=== PATIENT | female | born 1960 | race Caucasian/White ===

== ENCOUNTER 2019-01-10 07:20 | Day surgery (SDC) | payer BC ==
[~2019-01-10] VITALS: Ht 165.1 cm; Wt 136.5 kg
--- NOTE | ~2019-01-10 | OR ---
[facility] [address] [place], [place] [address] Draft DATE OF OPERATION: 01/10/2019 SURGEON: Svetlana Christina MD PREOPERATIVE DIAGNOSES: Postmenopausal bleeding and morbid obesity. POSTOPERATIVE DIAGNOSES: Postmenopausal bleeding, morbid obesity, and endometrial polyps. PROCEDURE: Hysteroscopy with resection of polyps. ANESTHESIA: General ET. ESTIMATED BLOOD LOSS: Minimal. DRAINS: None. INDICATIONS AND FINDINGS: The patient is a 58-year-old female, 3, para 2, AB1, who has had recent abnormal bleeding. Endometrial stripe was thickened and irregular on ultrasound. At the time of surgery, exam under anesthesia was unremarkable, though exam is markedly compromised by her morbid obesity. Cavity sounded to 8.5 cm. There were polyps on the anterior and posterior chen. DESCRIPTION OF PROCEDURE: The patient was prepped and draped in a dorsal lithotomy position. A weighted speculum was placed. The anterior lip of the cervix was visualized and grasped with a single-tooth tenaculum. The cavity was sounded to 8.5 cm. The endocervical canal was then dilated to a #8 dilator. At that point, the MyoSure device could be placed. The cavity was evaluated and decision was made to proceed with MyoSure Lite. This was placed and the polyps were both anterior and posteriorly resected as much as possible. Following this, the remaining cavity appeared normal. The procedure was then terminated. The instruments were removed from the vagina. The tenaculum was removed. There was no evidence of any ongoing bleeding from the tenaculum site. The patient was then taken to PATIENT NAME: GUS RYAN OPERATIVE REPORT DATE OF : 64 REPORT #: [id number] PHYSICIAN: SVETLANA CHRISTINA MD PCP: DAYSI MARX PA-C REPORT IS CONFIDENTIAL AND NOT TO BE RELEASED WITHOUT AUTHORIZATION [address] [address] Draft the recovery room in good condition. MD CIARA Daniel/NICOLÁS /[id number] cc: [facility] Copies: ~ PATIENT NAME: GUS RYAN OPERATIVE REPORT DATE OF : 64 REPORT #: [id number] PHYSICIAN: SVETLANA CHRISTINA MD PCP: DAYSI MARX PA-C REPORT IS CONFIDENTIAL AND NOT TO BE RELEASED WITHOUT AUTHORIZATION
[~2019-01-10 07:20] MED LIST: LEVOTHYROXINE137 MCG PO; LEVOTHYROXINE150 MCG PO; LISINOPRIL10 MG PO; ZYRTEC-D TABLE1 EACH PO
[2019-01-10] MEDS ORDERED: ALEVE220 MG PO (07:37)
--- NOTE | 2019-01-10 12:08 | NUR ---
01/10/19 1208 Sheets,Merry 1155 PT ARRIVED TO PACU ON 15L VIA MASK, PT REACTIVE AND PT REACHING FOR ORAL AIRWAY. PT PULLED AIRWAY OUT AND MASK OFF. RN REORIENTING PT TO PACU AND ENCOURAGING DEEP BREATHING. HOB INCREASED. 1157 O2 DECREASED TO 10L VIA MASK, RN CONTINUES TO ENCOURAGE DEEP BREATHING OFF AND ON. 1202 O2 MASK REMOVED AND NC PLACED AT 4L. PT WAKES TO VERBAL STIMULI AND COUGHES OFF AND ON. PT DENIES PAIN AND NAUSEA. PT ASLEEP AND SNORING NOTED. 1207 PT MORE AWAKE AND PLAN OF CARE DISCUSSED. PT DENIES SOB AND NODS "YES" TO FEELING ALRIGHT.
--- NOTE | 2019-01-10 12:31 | NUR ---
ICED WATER AND JELLO GIVEN. CALL LIGHT WITHIN REACH.
[2019-01-10] MEDS ORDERED: NORCO 5-325 TA1 EACH PO (13:28)
[2019-01-10] MEDS ORDERED: MOTRIN IB200 MG PO (13:28)
--- NOTE | 2019-01-10 13:46 | NUR ---
LE 1340: PATIENT UP TO THE BEDSIDE AND DENIES DIZZINESS. PATIENT DRESSES SELF IN PRESENCE OF SPOUSE. PATIENT AMBULATES TO THE BATHROOM WITH RN STANDBY. PATIENT VOIDS 100 ML BLOOD TINGED URINE AND IS BACK TO THE ROOM. DISCHARGE INSTRUCTIONS ARE GIVEN AND PATIENT TRANSFERS SELF TO THE WHEELCHAIR AND IS DISCHARGED HOME.
--- NOTE | 2019-01-11 14:35 | PATH ---
[facility] [address] [place], [place] [address] Signed SPECIMEN(S): A ENDOMETRIAL POLYPS SPECIMEN SOURCE: A. ENDOMETRIAL POLYPS CLINICAL HISTORY: Hysteroscopy DC. Postmenopausal bleeding. FINAL PATHOLOGIC DIAGNOSIS: Uterus, endometrium, curettage: - Endometrial polyps. - Background endometrium -- weakly proliferative/atrophic. - Negative for hyperplasia, atypia, and malignancy. LJA:cml:C2NR MICROSCOPIC EXAMINATION: Histologic sections of all submitted blocks are examined by light microscopy. These findings, together with the gross examination, support the pathologic diagnosis. GROSS DESCRIPTION: The specimen, labeled "EH, endometrial polyps," is received in formalin and consists of multiple lanza-pink to lanza-red soft tissue fragments aggregating to 3.0 x 3.0 x 0.3 cm. The specimen is filtered and entirely submitted in cassette (A1). AR (under the direct supervision of a pathologist) The Gross Description was prepared using a voice recognition system. The report was reviewed for accuracy; however, sound-alike word errors, addition and/or deletions may occur. If there is any question about this report, please contact Client Services. PERFORMING LABORATORY: The technical component was performed by [facility], [address] [place] [address] (Commercial Credit Reviewer: Ana Menendez MD; CLIA# [id number]). [facility] [address] [address] (Commercial Credit Reviewer: Parish Small MD; CLIA# [id number]). Diagnostician: Parish Small MD Pathologist PATIENT NAME: GUS RYAN PATHOLOGY DATE OF : 64 REPORT #: [id number] PHYSICIAN: ARIEL PATHOLOGY PCP: DAYSI MARX PA-C REPORT IS CONFIDENTIAL AND NOT TO BE RELEASED WITHOUT AUTHORIZATION [address] [address] Signed Electronically Signed 01/11/2019 Copies: ~ PATIENT NAME: GUS RYAN PATHOLOGY DATE OF : 64 REPORT #: [id number] PHYSICIAN: ARIEL PATHOLOGY PCP: DAYSI MARX PA-C REPORT IS CONFIDENTIAL AND NOT TO BE RELEASED WITHOUT AUTHORIZATION
== END 2019-01-10 13:50 | disposition home or self-care (01) ==
LOC: DS 07:20
PROVIDERS: Obstetrics & Gynecology
PROC: 0UB98ZZ Excision of Uterus, Via Natural or Artificial Opening Endoscopic (ICD-10-PCS; principal; 2019-01-10 10:45)
DX: N84.0 Polyp of corpus uteri (principal); N95.0 Postmenopausal bleeding; E66.01 Morbid (severe) obesity due to excess calories; I10 Essential (primary) hypertension; E78.00 Pure hypercholesterolemia, unspecified; E03.9 Hypothyroidism, unspecified; E55.9 Vitamin D deficiency, unspecified; K21.9 Gastro-esophageal reflux disease without esophagitis; M19.90 Unspecified osteoarthritis, unspecified site; G89.29 Other chronic pain; Z79.899 Other long term (current) drug therapy; Z68.42 Body mass index [BMI] 45.0-49.9, adult
CPT/HCPCS: 00952; J1100; J1885; J2250; J2405; J2704; J2765; J3010; J7120

== ENCOUNTER 2019-03-26 07:13 | Day surgery (SDC) | payer BC ==
[~2019-03-26] VITALS: Ht 165.1 cm; Wt 136.1 kg
[~2019-03-26 07:13] MED LIST changes: +ALEVE220 MG PO; +MOTRIN IB200 MG PO; +NORCO 5-325 TA1 EACH PO
--- NOTE | 2019-03-26 09:46 | NUR ---
03/26/19 0946 Rae Edwards 0924- PT ARRIVES TO PACU ALERT AND ORIENTED. PT REPORTS HER ABD IS CRAMPING AND STATES HER PAIN IS A 4/10. PT ENCOURAGED TO PASS FLATUS. PT STATES UNDERSTANDING OF THIS. OXYGEN SAT MID TO HIGH 90'S ON RA.
--- NOTE | 2019-03-26 10:01 | NUR ---
PT ALERT, ORIENTTED AND SUPPORTED BY HER . PT SEEMED TO HAVE LITTLE DESIRE FOR INTERACTION, WELL HER . EXTENDED A BLESSING, WILL FOLLOW NEEDED
--- NOTE | 2019-03-26 15:57 | OR ---
[facility] [address] [place], [place] [address] Signed DATE OF OPERATION: 03/26/2019 SURGEON: Ezekiel Flowers MD PREOPERATIVE DIAGNOSES: 1. Colon screening. 2. Morbid obesity. 3. History of conversion of L-MAC to general anesthesia a month and a half ago. POSTOPERATIVE DIAGNOSIS: Polyps x4 (splenic flexure of left transverse colon and proximal descending colon). PROCEDURE PERFORMED: Total colonoscopy to cecum with hot snare polypectomy x4. ANESTHESIA: Intravenous sedation, fentanyl 100 mcg, Versed 7 mg. INDICATION: This 59-year-old morbidly obese white woman is a patient of Dr. Christina. She has been recommend to have colonoscopy for a number of years. She has never followed through with it. She has no symptoms of bleeding, diarrhea, or constipation and wishes to proceed with this study, understanding the risks of bleeding, infection, and perforation. Of note, about a month and a half ago, she underwent a hysteroscopy, D and C intending for a L-MAC type anesthetic, which was converted to endotracheal anesthetic due to hypoxemia. We are mindful of that in our plan for IV sedation. FINDINGS: She had no problems with sedation. Careful and cautious sedation was given (as usual). The prep was excellent. Complete colonoscopy was undertaken of the cecum. She had three polyps at the left transverse colon in the region of the splenic flexure and one in the proximal descending colon. All were excised with hot snare polypectomy technique. Three of the four polyps were retrieved. The smallest unfortunately was lost though it was in the same area as the other two. DESCRIPTION OF PROCEDURE: The patient was brought to the endoscopy suite and placed in lateral decubitus position, given intravenous sedation with caution with full cardiopulmonary monitoring. Incremental administration of the opiate and subsequently the benzodiazepine was undertaken. She suffered no hypoxemic episodes during the procedure. Additional Electronically Signed By: EZEKIEL FLOWERS MD 03/26/19 9488 PATIENT NAME: GUS RYAN OPERATIVE REPORT DATE OF : 64 REPORT #: [id number] PHYSICIAN: EZEKIEL FLOWERS MD PCP: DAYSI MARX PA-C REPORT IS CONFIDENTIAL AND NOT TO BE RELEASED WITHOUT AUTHORIZATION [facility] [address] [place], [place] [address] Signed sedation was given as needed throughout. Digital rectal examination was found to be normal. An Olympus video colonoscope was passed in the rectum and manipulated throughout the colon ultimately intubating the cecum itself. The ileocecal valve was normal. The scope was withdrawn from that point and at approximately the left transverse colon in the region of splenic flexure were three hyperemic appearing polyps, one of them about a centimeter in size, the other smaller. All three were excised with hot snare polypectomy technique. A Shankar Net was used to grasp the polyp, so it was not easily done and the smallest of the polyps, only could be grasped. The polyps disappeared until later in the scope when they could be retrieved more fully. Ultimately, two of the three polyps had been removed. Further withdrawal of scope showed in the proximal descending colon approximately 80 cm, another similar hyperemic polyp. This was excised with hot snare polypectomy technique, grasped and retrieved without problem. The remaining colon including the rectum was normal. The scope was removed and the patient was taken to recovery room in good condition. CONCLUDING DIAGNOSIS: Four polyps excised, three retrieved, all of them hyperemic in appearance, uncertain if adenomatous or not. PLAN: Review pathology report. Repeat colonoscopy in 3 years or sooner if clinically indicated. She will return to the ongoing care of Dr. Christina as well as Elo Yarbrough PA-C. MD KRYSTYNA Marquez/NICOLÁS /[id number] cc: MD Elo Daniel PA-C Copies: RONALD CHRISTINA MD Electronically Signed By: EZEKIEL FLOWERS MD 03/26/19 1557 PATIENT NAME: GUS RYAN OPERATIVE REPORT DATE OF : 64 REPORT #: [id number] PHYSICIAN: EZEKIEL FLOWERS MD PCP: DAYSI MARX PA-C REPORT IS CONFIDENTIAL AND NOT TO BE RELEASED WITHOUT AUTHORIZATION [address] [address] Signed ~ Electronically Signed By: EZEKIEL FLOWERS MD 03/26/19 1557 PATIENT NAME: CONNORUGSTONE PALMER OPERATIVE REPORT DATE OF : 64 REPORT #: [id number] PHYSICIAN: EZEKIEL FLOWERS MD PCP: DAYSI MARX PA-C REPORT IS CONFIDENTIAL AND NOT TO BE RELEASED WITHOUT AUTHORIZATION
== END 2019-03-26 10:24 | disposition home or self-care (01) ==
LOC: OPS 07:13 → DS 07:13 → OPS 08:30 → DS 08:30 → OPS 10:24
PROVIDERS: Surgery
PROC: 0DBM8ZZ Excision of Descending Colon, Via Natural or Artificial Opening Endoscopic (ICD-10-PCS; 2019-03-26)
PROC: 0DBL8ZZ Excision of Transverse Colon, Via Natural or Artificial Opening Endoscopic (ICD-10-PCS; principal; 2019-03-26 08:30)
DX: Z12.11 Encounter for screening for malignant neoplasm of colon (principal); K63.5 Polyp of colon; E66.01 Morbid (severe) obesity due to excess calories; I10 Essential (primary) hypertension; E03.9 Hypothyroidism, unspecified; N93.9 Abnormal uterine and vaginal bleeding, unspecified; Z68.43 Body mass index [BMI] 50.0-59.9, adult
CPT/HCPCS: 99153; G0500; J2250; J2405; J3010

== ENCOUNTER 2022-09-10 05:47 | Day surgery (SDC) | payer BC ==
[2022-09-02 16:15] VITALS: BP 123/70
[~2022-09-10] VITALS: Ht 165.1 cm; Wt 133.6 kg
[~2022-09-10 05:47] MED LIST changes: +CRESTOR5 MG PO; +HYDROCHLOROTH12.5 MG PO; +ZYRTEC10 MG PO
[2022-09-10 06:00] VITALS: BP 130/53
--- NOTE | 2022-09-10 08:12 | NUR ---
09/10/22 0812 Merry Schaefer 0805 PT ARRIVED TO PACU ON 6L VIA OXYMASK, PT DENIES CONCERNS. RESP EVEN AND UNLABORED, PT ENCOURAGED TO DEEP BREATHE OFF AND ON. 0810 PT REPORTS "I WOULD LIKE TO TAKE A NAP." PLAN OF CARE DISCUSSED AND PT CLOSES HER EYES RESTING.
[2022-09-10 08:29] VITALS: BP 135/82
--- NOTE | 2022-09-10 13:28 | OR ---
[facility] [address] [place], [place] [address] Signed DATE OF OPERATION: 09/10/2022 SURGEON: Ezekiel Flowers MD PREOPERATIVE DIAGNOSES: 1. History of polyps 2019. 2. Morbid obesity and multiple comorbidities. POSTOPERATIVE DIAGNOSES: 1. Two tiny rectosigmoid polyps (excised). 2. Minimal diverticular changes. 3. Mild cecal inflammation. PROCEDURE: Total colonoscopy to cecum with biopsy of cecum and cold morcellation polypectomy x2. ANESTHESIA: Intravenous sedation, propofol infusion, Heber Calixto CRNA INDICATIONS: This 62-year-old morbidly obese white woman underwent colonoscopy by [facility] in 2019, where she was found to have polyps of the transverse colon, splenic flexure and left colon. Hot snare polypectomy technique was used for resection of the polyps. Surprisingly, they were considered to be hyperplastic. She has no family history of colon cancer. No current symptoms of bleeding, diarrhea, or constipation. She does have underlying sleep apnea and history of knee replacement. She is admitted to undergo surveillance colonoscopy. She understands the risk of bleeding, infection and perforation. FINDINGS: The prep was good. Complete colonoscopy was undertaken of the cecum without question. She had mild inflammation of the cecum. There was a small arteriovenous malformation of little consequence noted in the left colon. There were few scattered diverticula. There were two very minimal probably hyperplastic polyps of rectosigmoid, both excised. DESCRIPTION OF PROCEDURE: The patient was brought to the surgical endoscopy suite and placed in the lateral decubitus position, given intravenous sedation to the point of slurred speech and nystagmus with full cardiopulmonary monitoring. Preoperative antibiotic Ancef was given based on knee replacement history. Digital rectal examination was normal. Olympus video colonoscope was passed in the rectum and manipulated throughout the colon noting a Electronically Signed By: EZEKIEL FLOWERS MD 09/10/22 1328 PATIENT NAME: GUS RYAN OPERATIVE REPORT DATE OF : 64 REPORT #: [id number] PHYSICIAN: EZEKIEL FLOWERS MD PCP: DAYSI JOHNSON PA-C REPORT IS CONFIDENTIAL AND NOT TO BE RELEASED WITHOUT AUTHORIZATION [facility] [address] [place], [place] [address] Signed few scattered diverticula of the sigmoid. In the proximal descending colon, there was a small arteriovenous malformation of little consequence instantly without any bleeding. The scope was passed beyond this ultimately to the cecum. The ileocecal valve and appendiceal orifice were normal. There did appear to be mild inflammation and edema of the cecum and on that basis, biopsy was obtained. The scope was then withdrawn and examination throughout showed no sign of abnormality until the rectosigmoid where two very small hyperplastic polyps were noted there, both excised. Retroflexed view of the rectum was normal. Scope was removed and the patient was taken to the recovery room in good condition. CONCLUDING DIAGNOSES: 1. Minimal diverticula of left colon. 2. Two small probably hyperplastic polyps of rectosigmoid and mild cecal inflammation. PLAN: Recommend repeat colonoscopy in 7 to 10 years, sooner if clinical symptoms should occur. She will return to the ongoing care of Dr. Svetlana Christina and ABEL Johnson Ezekiel Flowers MD JM/MODL /[id number] cc: Dr. Alex Christina MD Copies: SVETLANA CHRISTINA MD ~ Electronically Signed By: EZEKIEL FLOWERS MD 09/10/22 1328 PATIENT NAME: GUS RYAN OPERATIVE REPORT DATE OF : 64 REPORT #: [id number] PHYSICIAN: EZEKIEL FLOWERS MD PCP: DAYSI JOHNSON PA-C REPORT IS CONFIDENTIAL AND NOT TO BE RELEASED WITHOUT AUTHORIZATION
--- NOTE | 2022-09-14 15:07 | PATH ---
[facility] [address] [facility] [place], [place] [address] Signed SPECIMEN(S): A CECUM BIOPSY SPECIMEN(S): B RECTOSIGMOID COLON POLYP SPECIMEN SOURCE: A. CECUM BIOPSY B. RECTOSIGMOID COLON POLYP CLINICAL HISTORY: History of polyps. FINAL PATHOLOGIC DIAGNOSIS: A. Cecum biopsy: - Tubular adenoma (one fragment). B. Rectosigmoid colon polyp: - Hyperplastic polyp (one fragment). JVR:[facility]:C2NR MICROSCOPIC EXAMINATION: Histologic sections of all submitted blocks are examined by light microscopy. These findings, together with the gross examination, support the pathologic diagnosis. GROSS DESCRIPTION: A. The specimen, labeled and designated "Kem, cecum biopsy," is received in formalin and consists of two lanza soft tissue fragments, ranging from 0.3-1.0 cm. Entirely submitted in (A1). B. The specimen, labeled and designated "Kem, rectosigmoid colon polyp," is received in formalin and consists of two lanza soft tissue fragments, ranging from 0.2-0.3 cm. Entirely submitted in (B1). VB (under the direct supervision of a pathologist) The Gross Description was prepared using a voice recognition system. The report was reviewed for accuracy; however, sound-alike word errors, addition and/or deletions may occur. If there is any question about this report, please contact Client Services. PERFORMING LABORATORY: The technical component was performed by [facility], [address] [place] [id number] (CLIA# [id number]). Professional interpretation was performed by [facility], [address] [place] [id number] (CLIA#: [id number]). PATIENT NAME: GUS RYAN PATHOLOGY DATE OF : 64 REPORT #: [id number] PHYSICIAN: ARIEL PATHOLOGY PCP: DAYSI MARX PA-C REPORT IS CONFIDENTIAL AND NOT TO BE RELEASED WITHOUT AUTHORIZATION [address] [place] [address] Signed Diagnostician: Klaus Barker MD Pathologist Electronically Signed 09/14/2022 Copies: ~ PATIENT NAME: GUS RYAN PATHOLOGY DATE OF : 64 REPORT #: [id number] PHYSICIAN: ARIEL SMILEY PCP: DAYSI MARX PA-C REPORT IS CONFIDENTIAL AND NOT TO BE RELEASED WITHOUT AUTHORIZATION
== END 2022-09-10 08:42 | disposition home or self-care (01) ==
LOC: DS 05:47 → OPS 05:47 → DS 10:00 → OPS 12:00
PROVIDERS: ATTEND Surgery
PROC: 0DBE8ZX Excision of Large Intestine, Via Natural or Artificial Opening Endoscopic, Diagnostic (ICD-10-PCS; principal; 2022-09-10 07:30)
DX: Z12.11 Encounter for screening for malignant neoplasm of colon (principal); D12.0 Benign neoplasm of cecum; K52.9 Noninfective gastroenteritis and colitis, unspecified; Q27.39 Arteriovenous malformation, other site; K57.30 Diverticulosis of large intestine without perforation or abscess without bleeding; E66.01 Morbid (severe) obesity due to excess calories; I10 Essential (primary) hypertension; E03.9 Hypothyroidism, unspecified; G47.33 Obstructive sleep apnea (adult) (pediatric); Z86.010 Personal history of colon polyps
CPT/HCPCS: J0690; J2001; J2704; J3490; J7121